=== PATIENT | male | born 1990 | race African-American/Black ===

== ENCOUNTER 2018-04-18 00:09 | Emergency (ER) | payer SELFPAY ==
[~2018-04-18] VITALS: Ht 177.8 cm; Wt 88.0 kg
[~2018-04-18 00:09] MED LIST: DOXY100T PO
[2018-04-18 00:45] VITALS: BP 134/72; PULSE 64; RESP 18; TEMP 98.7; O2SAT 100
--- NOTE | 2018-04-18 02:44 | PD ---
HPI Chief Complaint: Laceration/Skin Injury Time Seen by Provider: 02:12 Travel History International Travel<30 days: No Contact w/Intl Traveler<30days: No Traveled to known affect area: No History of Present Illness HPI 27-year-old black male presents emergency department with complaints of a laceration to his right medial ankle. This occurred while at work. The patient states that he was struck with a palate martha. Patient is up-to-date with immunizations. Pain is mild. He denies any sensory loss. No alleviating symptoms. Exacerbated by the direct trauma. And movement. 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) Tobacco Use: Yes (OCCASIONALLY ) Substance Use: No Allergies-Medications (Allergen,Severity, Reaction): Coded Allergies: No Known Allergies (Unverified Adverse Reaction, Unknown, 04/18/18) Reported Meds & Prescriptions Reported Meds & Active Scripts Active Review of Systems General / Constitutional: No: Fever Eyes: No: Visual changes HENT: No: Headaches Cardiovascular: No: Chest Pain or Discomfort Respiratory: No: Shortness of Breath Gastrointestinal: No: Abdominal Pain Genitourinary: No: Dysuria Musculoskeletal: No: Pain Skin: No Rash Neurologic: No: Weakness Psychiatric: No: Depression Endocrine: No: Polydipsia Hematologic/Lymphatic: No: Easy Bruising Physical Exam Narrative GENERAL: This is a well-nourished, well-developed patient, in no apparent distress. SKIN: No rashes, ecchymoses or lesions. Warm and dry. HEAD: Atraumatic. Normocephalic. EYES: PERRL, EOMI, no discharge or injection. No scleral icterus. EARS: Clear NOSE: Nasal turbinates appear normal. THROAT: Mucosa pink and moist. Airway patent. NECK: Trachea midline. supple, moves head freely. LUNGS: Clear to auscultation. CV: Regular in rhythm. ABDOMEN: Soft nontender. EXT: No clubbing cyanosis or edema. Patient has a 7 cm laceration to the medial aspect of the right ankle/lower leg. Patient denies any sensory loss. Full range of motion. No foreign body. Data Data Last Documented VS Vital Signs Date Time Temp Pulse Resp B/P (MAP) Pulse Ox O2 Delivery O2 Flow Rate FiO2 04/18/18 00:45 98.7 64 18 134/72 (92) 100 MDM Medical Decision Making Medical Screen Exam Complete: Yes Emergency Medical Condition: Yes Medical Record Reviewed: Yes Differential Diagnosis MDM: High Differential diagnoses: Fracture, sprain, strain, dislocation, contusion, neurovascular injury Narrative Course laceration closed with sutures. Procedures Procedure Narrative LACERATION LOCATION: Right lower leg LENGTH: 7 cm NUMBER OF STITCHES/GIOVANNA: 10 REPAIR: The area of the laceration was prepped with Betadine and sterilely draped. The laceration was infiltrated with 1% lidocaine. The wound was copiously irrigated and explored without evidence of foreign body, tendon injury or neurovascular injury. The wound was closed using 4-0 Prolene. This was a simple single layer repair. A sterile dressing was applied. The patient was advised to keep the dressing clean and dry. Patient tolerated the procedure well. Diagnosis Primary Impression: Right lower leg laceration Patient Instructions: General Instructions Departure Forms: Tests/Procedures, Work Release Special Instructions: No work 04/18/18 Additional Instructions: Rest. Elevation. Tylenol and Advil for pain. Daily wound care with soap, water, Neosporin. Sutures out in 12-14 days. Return to the ER if any problems. Med/Other Pt SpecificInfo: Wound Care Disposition: 01 DISCHARGE HOME Condition: Stable James Larson April 18, 2018 02:44
== END 2018-04-18 03:09 | disposition home or self-care (01) ==
LOC: NEPD 00:09
DX: S81.811A Laceration without foreign body, right lower leg, initial encounter (principal); W22.8XXA Striking against or struck by other objects, initial encounter
CPT/HCPCS: 12002